=== PATIENT | male | born 1965 | race Caucasian/White ===

== ENCOUNTER → 2019-03-21 07:49 | Outpatient (BNVA) | payer MEDICARE, SELFPAY | PROVIDERS: Family Provider Family Medicine; PCP Family Medicine; Visit Provider Nurse Practitioner | DX: M54.5 Low back pain (principal); Z79.891 Long term (current) use of opiate analgesic | CPT/HCPCS: 99213; 99214 ==

== ENCOUNTER → 2019-05-23 08:51 | Outpatient (BNVA) | payer MEDICARE, SELFPAY | PROVIDERS: Family Provider Family Medicine; PCP Family Medicine; Visit Provider Nurse Practitioner | DX: M47.16 Other spondylosis with myelopathy, lumbar region (principal); Z79.891 Long term (current) use of opiate analgesic | CPT/HCPCS: 99214 ==

== ENCOUNTER → 2019-08-29 10:00 | Outpatient (BNVA) | payer MEDICARE, SELFPAY | PROVIDERS: Family Provider Family Medicine; PCP Family Medicine; Visit Provider Family Medicine | DX: I10 Essential (primary) hypertension (principal); E78.5 Hyperlipidemia, unspecified; R73.03 Prediabetes | CPT/HCPCS: 80053; 80061; 83036 ==

== ENCOUNTER → 2019-09-17 13:37 | Outpatient (BNVA) | payer MEDICARE, SELFPAY | PROVIDERS: Family Provider Family Medicine; PCP Family Medicine; Visit Provider Nurse Practitioner | DX: G89.29 Other chronic pain (principal); M54.2 Cervicalgia; M54.42 Lumbago with sciatica, left side; M54.41 Lumbago with sciatica, right side; M47.16 Other spondylosis with myelopathy, lumbar region; M54.6 Pain in thoracic spine; F17.298 Nicotine dependence, other tobacco product, with other nicotine-induced disorders; Z79.891 Long term (current) use of opiate analgesic | CPT/HCPCS: 87491; 87591; 99213; 99214 ==

== ENCOUNTER → 2019-10-03 10:13 | Outpatient (BNVA) | payer MEDICARE, SELFPAY | PROVIDERS: Family Provider Family Medicine; PCP Family Medicine; Referring Provider Family Medicine; Visit Provider Family Medicine | DX: A64 Unspecified sexually transmitted disease (principal) | CPT/HCPCS: 87491; 87591; 87661 ==

== ENCOUNTER → 2019-11-12 08:06 | Outpatient (BNVA) | payer MEDICARE, SELFPAY | PROVIDERS: Family Provider Family Medicine; PCP Family Medicine; Visit Provider Anesthesiology | DX: G89.29 Other chronic pain (principal); M54.42 Lumbago with sciatica, left side; M54.41 Lumbago with sciatica, right side; M51.36 Other intervertebral disc degeneration, lumbar region; M47.16 Other spondylosis with myelopathy, lumbar region; M54.2 Cervicalgia; Z79.891 Long term (current) use of opiate analgesic | CPT/HCPCS: 99214 ==

== ENCOUNTER → 2020-01-14 07:51 | Outpatient (BNVA) | payer MEDICARE, SELFPAY | PROVIDERS: Family Provider Family Medicine; PCP Family Medicine; Visit Provider Anesthesiology | DX: G89.29 Other chronic pain (principal); M51.36 Other intervertebral disc degeneration, lumbar region; M47.16 Other spondylosis with myelopathy, lumbar region; M54.2 Cervicalgia; Z79.891 Long term (current) use of opiate analgesic | CPT/HCPCS: 99214 ==

== ENCOUNTER → 2020-03-17 09:05 | Outpatient (BNVA) | payer MEDICARE, SELFPAY | PROVIDERS: Family Provider Family Medicine; PCP Family Medicine; Visit Provider Nurse Practitioner | DX: G89.29 Other chronic pain (principal); M51.36 Other intervertebral disc degeneration, lumbar region; M47.16 Other spondylosis with myelopathy, lumbar region; M54.2 Cervicalgia; M19.90 Unspecified osteoarthritis, unspecified site; M54.5 Low back pain; F17.298 Nicotine dependence, other tobacco product, with other nicotine-induced disorders; Z71.6 Tobacco abuse counseling; Z79.891 Long term (current) use of opiate analgesic | CPT/HCPCS: 99213 ==

== ENCOUNTER → 2020-04-07 09:02 | Outpatient (BNVA) | payer MEDICARE, SELFPAY | PROVIDERS: Family Provider Family Medicine; PCP Family Medicine; Visit Provider Family Medicine | DX: I10 Essential (primary) hypertension (principal); N52.8 Other male erectile dysfunction; E78.5 Hyperlipidemia, unspecified; F17.298 Nicotine dependence, other tobacco product, with other nicotine-induced disorders | CPT/HCPCS: 80053; 80061 ==

== ENCOUNTER → 2020-05-14 08:54 | Outpatient (BNVA) | payer MEDICARE, SELFPAY | PROVIDERS: Family Provider Family Medicine; PCP Family Medicine; Visit Provider Nurse Practitioner | DX: G89.29 Other chronic pain (principal); M51.36 Other intervertebral disc degeneration, lumbar region; M47.16 Other spondylosis with myelopathy, lumbar region; M19.90 Unspecified osteoarthritis, unspecified site; M54.2 Cervicalgia; F17.298 Nicotine dependence, other tobacco product, with other nicotine-induced disorders; Z79.891 Long term (current) use of opiate analgesic; Z71.6 Tobacco abuse counseling | CPT/HCPCS: 99213; 99214 ==

== ENCOUNTER → 2020-07-09 07:55 | Outpatient (BNVA) | payer MEDICARE, SELFPAY | PROVIDERS: Family Provider Family Medicine; PCP Family Medicine; Visit Provider Anesthesiology | DX: G89.29 Other chronic pain (principal); M47.16 Other spondylosis with myelopathy, lumbar region; M51.36 Other intervertebral disc degeneration, lumbar region; M54.2 Cervicalgia; F17.298 Nicotine dependence, other tobacco product, with other nicotine-induced disorders; Z79.891 Long term (current) use of opiate analgesic | CPT/HCPCS: 99214 ==

== ENCOUNTER → 2020-09-03 07:52 | Outpatient (BNVA) | payer MEDICARE, SELFPAY | PROVIDERS: Family Provider Family Medicine; PCP Family Medicine; Visit Provider Anesthesiology | DX: G89.29 Other chronic pain (principal); M47.16 Other spondylosis with myelopathy, lumbar region; M51.36 Other intervertebral disc degeneration, lumbar region; M54.2 Cervicalgia; Z79.891 Long term (current) use of opiate analgesic; Z87.891 Personal history of nicotine dependence | CPT/HCPCS: 99214 ==

== ENCOUNTER → 2020-11-05 07:57 | Outpatient (BNVA) | payer MEDICARE, SELFPAY | PROVIDERS: Family Provider Family Medicine; PCP Family Medicine; Visit Provider Anesthesiology | DX: G89.29 Other chronic pain (principal); M51.36 Other intervertebral disc degeneration, lumbar region; M47.16 Other spondylosis with myelopathy, lumbar region; M54.2 Cervicalgia; F17.298 Nicotine dependence, other tobacco product, with other nicotine-induced disorders; Z79.891 Long term (current) use of opiate analgesic | CPT/HCPCS: 99214 ==

== ENCOUNTER 2020-12-24 11:43 | Emergency (ER) | payer MEDICARE, SELFPAY ==
[2020-12-24 11:59] VITALS: BP 107/72; PULSE 74; RESP 16; TEMP 36.9; O2SAT 97; BMI 34.7
[2020-12-24 12:03] VITALS: RESP 15
--- NOTE | 2020-12-24 12:04 | W.ED.LOWEXIN ---
Documented by User: ROSE Burroughs 12/24/20 15:45 HPI - Extremity Injury (Lower) General: Chief Complaint: Extremity Injury, Lower Stated Complaint: Pain in R Knee Time Seen by Provider: 12/24/20 12:04 Source: patient Mode of arrival: ambulatory Limitations: no limitations History of Present Illness: HPI Narrative: Patient is a 55-year-old male who presents to ED today for evaluation of a right knee injury. Patient tells me a few days ago he was going down a flight of stairs when he fell and states his left leg extended and his right leg got caught underneath him. Patient was subsequently seen by his primary care provider and told he could potentially have a quadriceps tendon rupture and recommended he come to the ED for evaluation/imaging/surgical consult. Patient tells me he is unable to extend his knee. He is ambulatory on the leg but with discomfort. MD complaint: knee injury Onset (ago): day(s) Place: home Relieving factors: immobilization Exacerbating factors: weight bearing and movement Context: fall Other symptoms: none Review of Systems Const: Denies: fever(s), chills, body aches, fatigue or malaise Card: Denies: chest pain Resp: Denies: dyspnea Musc: Reports: extremity pain (R leg); Denies: joint swelling Skin/Breast: Denies: rash Neuro: Denies: numbness in extremities or sensory changes PFS ED PFSH: Medical History (Updated 12/24/20 @ 14:58 by ROSE Burroughs) Chronic thoracic spine pain DDD (degenerative disc disease), lumbar Dyslipidemia Encounter for long-term (current) use of NSAIDs Essential hypertension Long-term current use of opiate analgesic > than 50% of 25 min visit spent counselling on weight loss and exercise. Lumbar spondylosis with myelopathy Continue current meds RX written for 340B Plan Neck pain Osteoarthritis, chronic Pain management contract signed Surgical History Hx of appendectomy 1977 Hx of bilateral hip replacements [facility] [place] Ortho Dr. Abrams. Left 2013 Right 2018 Hx of foot surgery [address] Melvin Campo [facility] Hx of fracture of arm Around 1977 surgery done [facility] Hx of tonsillectomy 1975 Status post left foot surgery LEFT FOOT RECONSTRUCTION - 2000 Family History Father , AGE 49 Diabetes Heart disease CAD (coronary artery disease) Grandfather Diabetes PATERNAL Social History Smoking and tobacco status: never smoked Quit status (tobacco): has quit using tobacco Year quit tobacco: 2011 Former quit date comment: usin nicorette gum AND VAPES Second hand smoke exposure: No Alcohol intake: never Desire information about alcohol rehabilitation?: No Household members: spouse Marital status: History of recent travel: No Physical Exam Const: COMMON NORMALS: no acute distress, patient oriented x3, no limitations and alert GENERAL APPEARANCE: cooperative NUTRITIONAL APPEARANCE: obese ORIENTATION/CONSCIOUSNESS: Yes awake, Yes oriented to person, Yes oriented to place and Yes oriented to time Extremity: GENERAL: Yes normal exam except as noted RIGHT LOWER EXTREMITY: Yes knee joint OTHER: patient has a palpable defect above his patella; he cannot extend knee joint and cannot perform straight leg raise; R leg is significantly larger than L that he states is chronic secondary to a L foot deformity and subsequent atrophy of the extremity; no calf pain; NV intact; sensory intact Neuro: COMMON NORMALS: patient oriented x3 and no sensory deficits noted SENSORIUM/ORIENTATION: Yes alert, Yes oriented to person, Yes oriented to place and Yes oriented to time Skin: COMMON NORMALS: no rashes or lesions noted GENERAL SKIN EXAM: no rashes or lesions noted TRAUMA: no lacerations or abrasions Course Consultations: Consultation #1: Dr. Abrams-recommends MRI for surgical planning, knee immobilizer, and will see patient in office on Monday Vital Signs: Vital signs: Vital Signs Temperature 98.5 F 12/24/20 11:59 Pulse Rate 74 12/24/20 11:59 Respiratory Rate 15 12/24/20 15:07 Blood Pressure 107/72 12/24/20 11:59 Pulse Oximetry 97 12/24/20 11:59 MDM - Extremity Injury (Lower) MDM Narrative: Medical decision making narrative: Spoke with Dr. Abrams who recommended MRI imaging. She will see patient on Monday for surgical planning. PCR COVID obtained. Patient will be placed in a knee immobilizer and given crutches. He has pain medications he can take at home. Imaging Data^: XR R knee: Radiologist's impression: [place] [id number] XRay Report Signed Patient: Ag Nelson Unit #: [id number] : 1965 Age/Sex: 55 / M ADM Date: 12/24/20 Loc: ER Room/Bed: Attending Dr: Ordering Provider/Ordering MD: Noy Luis Date of Service: 12/24/20 Procedure(s): XR knee RT 3V* [id number] Accession Number(s): [id number] Report Number: [id number] WS: [id number] XR knee RT 3V* [id number] REASON FOR EXAM: knee pain; poss quad tendon rupture FINDINGS: The medial and lateral knee joint spaces are relatively well-preserved. The patellofemoral joint space appears preserved. Small patellar marginal osteophytes. Enthesophyte at the insertion of the quadriceps tendon on the patella. There is a soft tissue mass anterior to the distal most femur and superior to the patella. Faint calcifications ossifications same location. Patella appears somewhat displaced inferiorly. XR/XR knee RT 3V* [id number] IMPRESSION: Soft tissue and patellar location are compatible with quadriceps tendon/muscle injury. Possibly avulsion of the quadriceps tendon from the patella with small bony fragment and retraction. Dictated By: Nakul Holliday Jr, MD Signed By: Naklu Holliday Jr, MD Signed Date/Time: 12/24/20 1241 DD/ 1234 MRI R knee: Radiologist's impression: [place] [address] Magnetic Resonance Report Signed Patient: Ag Nelson Unit #: [id number] : 1965 Age/Sex: 55 / M ADM Date: 12/24/20 Loc: ER Room/Bed: Attending Dr: Ordering Provider/Ordering MD: Noy Luis Date of Service: 12/24/20 Procedure(s): MR knee RT wo con* [id number] Accession Number(s): [id number] Report Number: [id number] WS: [id number] MRI RIGHT KNEE NONCONTRAST TECHNIQUE: Axial PD, coronal PD fat sat, coronal PD, sagittal PD, and sagittal PD fat-sat images obtained. CLINICAL INFORMATION: quadricep tendon rupture; per Dr. Abrams-surgical planning COMPARISON: None. FINDINGS: Diffuse soft tissue edema. Moderate joint effusion. High-grade complete/near-complete tendon tear involving the distal quadriceps tendon with retraction measuring approximately 7 mm. Suggestion of a small amount of possible residual bridging tendon eccentric along the lateral margin. Patella tendon is intact. Hypertrophic patella. No visualized patella avulsion. Patella enthesophyte with hypertrophic changes. Normal ACL and PCL. Moderate tricompartmental arthritis. No acute appearing meniscal tears. Chronic thinning of the medial and lateral meniscus. Tiny lateral parameniscal cyst. No edema within the femoral condyles and tibial plateau. Moderate chondromalacia patella. No subchondral edema. Medial and lateral collateral ligaments appear grossly intact. MR/MR knee RT wo con* [id number] IMPRESSION: 1. High-grade complete/near-complete tear of the distal quadriceps tendon with approximately 7 mm of retraction. 2. No evidence patella avulsion. Patella enthesophyte with hypertrophic changes. 3. Diffuse edema about the knee involving the suprapatellar fat with moderate joint effusion. 4. Normal ACL and PCL. 5. No acute appearing meniscal tears. 6. Moderate tricompartmental arthritis. Outbridge grading: Dictated By: Matthieu Sow MD Signed By: Matthieu Sow MD Signed Date/Time: 12/24/201521 DD/ 13 Discharge Plan Discharge Patient Disposition: Home Clinical Impression: Traumatic rupture of right quadriceps tendon Qualifiers: Encounter type: initial encounter Qualified Code(s): S76.111A - Strain of right quadriceps muscle, fascia and tendon, initial encounter Condition: Stable Prescriptions: No Action aspirin 81 mg tablet,delayed release (DR/EC) 81 mg PO EVERY OTHER DAY RF: 0 hydrocodone-acetaminophen 10-325 mg tablet 1 tab PO Q4H MDD 6 30 Days Qty: 180 RF: 0 Vitamin C 1,000 mg Tablet 1,000 mg PO EVERY OTHER DAY RF: 0 Vitamin B-12 1 tab PO EVERY OTHER DAY RF: 0 Vitamin B-6 1 tab PO EVERY OTHER DAY RF: 0 Vitamin D3 1 cap PO EVERY OTHER DAY RF: 0 zinc 1 cap PO EVERY OTHER DAY RF: 0 sildenafil 100 mg tablet See Rx Instructions .ROUTE .COMPLEX PRN (Reason: sexual activity) RF: 0 lisinopril-hydrochlorothiazide 10-12.5 mg tablet 1 tab PO QAM RF: 0 pregabalin 75 mg capsule 75 mg PO 5XD RF: 0 Discharge Orders: Discharge ED (Routine); Ordered 12/24/20 Ordered By: Noy Luis Referrals: Elda Le MD [Primary Care Provider] - Patient Instructions: Knee Immobilizer (ED), Quadriceps Tendon Rupture Activity Restrictions/Additional Instructions: As we discussed you have an appointment with Dr. Abrams scheduled for Monday for evaluation and possible planning for surgery. She will go over results of your MRI during that visit. No weight bearing on the extremity until this appointment. Coding Level of Care Code ED Publication Editor for Chg Fwd Exam Expanded Problem Focused Documented by User: Deric Parks DO 12/24/20 17:23 HPI - Extremity Injury (Lower) General: Chief Complaint: Extremity Injury, Lower Stated Complaint: Pain in R Knee Time Seen by Provider: 12/24/20 12:04 PFS ED PFSH: Medical History (Updated 12/24/20 @ 14:58 by ROSE Burroughs) Chronic thoracic spine pain DDD (degenerative disc disease), lumbar Dyslipidemia Encounter for long-term (current) use of NSAIDs Essential hypertension Long-term current use of opiate analgesic > than 50% of 25 min visit spent counselling on weight loss and exercise. Lumbar spondylosis with myelopathy Continue current meds RX written for 340B Plan Neck pain Osteoarthritis, chronic Pain management contract signed Surgical History Hx of appendectomy 1977 Hx of bilateral hip replacements [facility] Ortho Dr. Abrams. Left 2013 Right 2018 Hx of foot surgery [address] Melvin [facility]o [facility] Hx of fracture of arm Around 1977 surgery done [place] [facility] Hx of tonsillectomy 1975 Status post left foot surgery LEFT FOOT RECONSTRUCTION - 2000 Family History Father , AGE 49 Diabetes Heart disease CAD (coronary artery disease) Grandfather Diabetes PATERNAL Social History Smoking and tobacco status: never smoked Quit status (tobacco): has quit using tobacco Year quit tobacco: 2011 Former quit date comment: usin nicorette gum AND VAPES Second hand smoke exposure: No Alcohol intake: never Desire information about alcohol rehabilitation?: No Household members: spouse Marital status: History of recent travel: No Course Vital Signs: Vital signs: Vital Signs Temperature 98.5 F 12/24/20 11:59 Pulse Rate 74 12/24/20 11:59 Respiratory Rate 15 12/24/20 15:07 Blood Pressure 107/72 12/24/20 11:59 Pulse Oximetry 97 12/24/20 11:59 MDM - Extremity Injury (Lower) MDM Narrative: Medical decision making narrative: Chart reviewed agree with assessment and plan Discharge Plan Discharge Patient Disposition: Home Clinical Impression: Traumatic rupture of right quadriceps tendon Qualifiers: Encounter type: initial encounter Qualified Code(s): S76.111A - Strain of right quadriceps muscle, fascia and tendon, initial encounter Condition: Stable Prescriptions: No Action aspirin 81 mg tablet,delayed release (DR/EC) 81 mg PO EVERY OTHER DAY RF: 0 hydrocodone-acetaminophen 10-325 mg tablet 1 tab PO Q4H MDD 6 30 Days Qty: 180 RF: 0 Vitamin C 1,000 mg Tablet 1,000 mg PO EVERY OTHER DAY RF: 0 Vitamin B-12 1 tab PO EVERY OTHER DAY RF: 0 Vitamin B-6 1 tab PO EVERY OTHER DAY RF: 0 Vitamin D3 1 cap PO EVERY OTHER DAY RF: 0 zinc 1 cap PO EVERY OTHER DAY RF: 0 sildenafil 100 mg tablet See Rx Instructions .ROUTE .COMPLEX PRN (Reason: sexual activity) RF: 0 lisinopril-hydrochlorothiazide 10-12.5 mg tablet 1 tab PO QAM RF: 0 pregabalin 75 mg capsule 75 mg PO 5XD RF: 0 Discharge Orders: Discharge ED (Routine); Ordered 12/24/20 Ordered By: Noy Luis Referrals: Elda Le MD [Primary Care Provider] - Patient Instructions: Knee Immobilizer (ED), Quadriceps Tendon Rupture Activity Restrictions/Additional Instructions: As we discussed you have an appointment with Dr. Abrams scheduled for Monday for evaluation and possible planning for surgery. She will go over results of your MRI during that visit. No weight bearing on the extremity until this appointment. Coding Level of Care Code ED Publication Editor for Toni Fwd Exam Expanded Problem Focused
--- NOTE | 2020-12-24 12:14 | XR_ITS ---
WS: [id number] XR knee RT 3V* [id number] REASON FOR EXAM: knee pain; poss quad tendon rupture FINDINGS: The medial and lateral knee joint spaces are relatively well-preserved. The patellofemoral joint space appears preserved. Small patellar marginal osteophytes. Enthesophyte a t the insertion of the quadriceps tendon on the patella. There is a soft tissue mass anterior to the distal most femur and superior to the patella. Faint calc ifications ossifications same location. Patella appears somewhat displaced inferiorly. XR/XR knee RT 3V* [id number] IMPRESSION: Soft tissue and patellar location are compatible with quadriceps tendon/muscle injury. Possibly avulsion of the quadriceps tendon from the patella with small bony fra gment and retraction.
--- NOTE | 2020-12-24 13:04 | MR_ITS ---
WS: [id number] MRI RIGHT KNEE NONCONTRAST TECHNIQUE: Axial PD, coronal PD fat sat, coronal PD, sagittal PD, and sagittal PD fat-sat images obta ined. CLINICAL INFORMATION: quadricep tendon rupture; per Dr. Abrams-surgical planning COMPARISON: None. FINDINGS: Diffuse soft tissue edema. Moderate joint effusion. High-grade complete/near-complete tendon tear inv olving the distal quadriceps tendon with retraction measuring approximately 7 mm. Suggestion of a sma ll amount of possible residual bridging tendon eccentric along the lateral margin. Patella tendon is intact. Hypertrophic patella. No visualized patella avulsion. Patella enthesophyte with hypertrophic changes. Normal ACL and PCL. Moderate tricompartmental arthritis. No acute appearing meniscal tears. Chronic thinning of the medial and lateral meniscus. Tiny lateral parameniscal cyst. No edema within the femo ral condyles and tibial plateau. Moderate chondromalacia patella. No subchondral edema. Medial and la teral collateral ligaments appear grossly intact. MR/MR knee RT wo con* [id number] IMPRESSION: 1. High-grade complete/near-complete tear of the distal quadriceps tendon with approximately 7 mm of retraction. 2. No evidence patella avulsion. Patella enthesophyte with hypertrophic change s. 3. Diffuse edema about the knee involving the suprapatellar fat with moderate joint effusion. 4. Normal ACL and PCL. 5. No acute appearing meniscal tears. 6. Moderate tricompartmental arthritis. Outbridge grading:
--- NOTE | 2020-12-24 13:32 | DCPLANNER ---
mobile product manager was asked to schedule a follow up appointment for patient with ortho. mobile product manager called the ortho clinic, spoke with Erin, gave clinic patients information. mobile product manager was told that patients information would be printed and reviewed. Clinic will call patient with appointment information.
[2020-12-24 14:03] VITALS: RESP 15
[2020-12-24 15:07] VITALS: RESP 15
[2020-12-25 16:40] LABS: Coronavirus Test Green County Not Detected
--- NOTE | 2021-01-29 12:17 | DCPLANNER ---
Patient had a follow up appointment scheduled for 12.28.[address] Abrams at [facility] - patient did attend appointment.
== END 2020-12-24 15:07 | disposition home or self-care (01) ==
PROVIDERS: Emergency Provider Physician Assistant; PCP Family Medicine
DX: S76.111A Strain of right quadriceps muscle, fascia and tendon, initial encounter (principal); Z79.82 Long term (current) use of aspirin; E78.5 Hyperlipidemia, unspecified; I10 Essential (primary) hypertension; Z87.891 Personal history of nicotine dependence; W10.8XXA Fall (on) (from) other stairs and steps, initial encounter; Z20.822 Contact with and (suspected) exposure to COVID-19
CPT/HCPCS: 29530; 73562; 73721; 87635; 99283; E0114

== ENCOUNTER 2020-12-28 16:30 | Outpatient (CLI) | payer MEDICARE, SELFPAY | END 2020-12-28 16:31 | disposition home or self-care (01) | LOC: SPT 16:30 | PROVIDERS: PCP Family Medicine; Visit Provider Specialist | DX: Z46.89 Encounter for fitting and adjustment of other specified devices (principal); S76.111D Strain of right quadriceps muscle, fascia and tendon, subsequent encounter; X58.XXXD Exposure to other specified factors, subsequent encounter | CPT/HCPCS: 97760; L1832 ==

== ENCOUNTER 2020-12-29 14:01 | Day surgery (SDC) | payer MEDICARE, SELFPAY ==
[2020-12-28 16:11] VITALS: BMI 33.9
[2020-12-29] VITALS (15 sets, daily range): BP systolic 129–181; BP diastolic 74–122; PULSE 60–79; RESP 15–20; TEMP 36.6–37.3; O2SAT 92–100
[2020-12-29] MEDS: sodium chloride 0.9% 1,000 ML 30 ML IV (14:41)
--- NOTE | 2020-12-29 15:37 | P.HPUD_ITS ---
Surgery/Procedure H&P Update DATE OF PROCEDURE: December 29, 2020 DATE H&P PERFORMED: 12/28/20 H&P UPDATE INFORMATION: I have reviewed H&P completed within last 30 days, No changes to prior documentation and H&P is in [facility] EMR on date indicated PREOP DIAGNOSIS: Traumatic right quadriceps tendon rupture PLANNED PROCEDURE: Operation Date: 12/29/20 16:15 Proposed Procedures p Tendon Repair Quadriceps(Right) - Patricia Abrams MD Related Problem List Diagnoses (1) Traumatic rupture of right quadriceps tendon: Qualifiers: Encounter type: initial encounter Qualified Code(s): S76.111A - Strain of right quadriceps muscle, fascia and tendon, initial encounter
--- NOTE | 2020-12-29 15:39 | P.ANESASSM_ITS ---
Pre-Anesthetic Assessment Pre-Anesthetic Assessment: Height/Weight: Height 1.83 m Weight 113.398 kg Temp Pulse Resp BP Pulse Ox 98 F 70 15 129/74 97 12/29/20 14:25 12/29/20 14:25 12/29/20 14:25 12/29/20 14:25 12/29/20 14:25 Preop Diagnosis: Traumatic right quadriceps tendon rupture Proposed Procedure: Operation Date: 12/29/20 16:15 Proposed Procedures p Tendon Repair Quadriceps(Right) - Patricia Abrams MD Was Beta Farhan taken within 24 hours: N/A Was Clonidine taken within 24 hours: N/A Last intake: Intake Last Liquid Date 12/29/20 Last Liquid Time 10:00 Last Solid Date 12/28/20 Last Solid Time 00:00 Social: Social History: No alcohol and No tobacco Exam: Pre-Anes Outpt Exam: alert, oriented x 3 and clear to auscultation bila terally Airway: Submandibular: WNL Cervical ROM: WNL MP: 3 Dentition: Full History/ROS: No significant complaints Pulmonary: Pulmonary: None reported CV/HEM: CV/HEM: None reported : : None reported Hepatic: Hepatic: None reported GI: GI: None reported Metabolic: Metabolic: Morbid obesity Musc/skel: Musc/skel: OA/DJD Neuropsych: Neuropsych: None reported Anesthetic Plan: ASA status: 3 Anesthesia: General Risk of > 500 ml blood loss (7ml/kg in children): Yes, adequate IV access and fluids planned Meds/Allergies Current Medications: Current Medications Generic Name Dose Route Start Last Admin Trade Name Freq PRN Reason Stop Dose Admin Sodium Chloride 1,000 mls @ 30 ml s/hr 12/29/20 14:15 12/29/20 14:41 Sodium Chloride 0.9% IV 12/30/20 14:14 30 mls/hr .Q24H YOCASTA Administration PFSH Anesthesia PFSH: Medical History Chronic thoracic spine pain DDD (degenerative disc disease), lumbar Dyslipidemia Encounter for long-term (current) use of NSAIDs Essential hypertension Long-term current use of opiate analgesic > than 50% of 25 min visit spent counselling on weight loss and exercise. Lumbar spondylosis with myelopathy Continue current meds RX written for 340B Plan Neck pain Osteoarthritis, chronic Pain management contract signed Surgical History Hx of appendectomy 1977 Hx of bilateral hip replacements [facility] [place] Ortho Dr. Abrams Right 2018. Left 2013 elsewhere Hx of foot surgery [address] Melvin Campo [facility] Hx of fracture of arm Around 1977 surgery done [place] Hx of tonsillectomy 1975 Status post left foot surgery LEFT FOOT RECONSTRUCTION - 2000 Family History Father , AGE 49 Diabetes Heart disease CAD (coronary artery disease) Grandfather Diabetes PATERNAL Social History Quit status (tobacco): has quit using tobacco Year quit tobacco: 2011 Former quit date comment: usin nicorette gum AND VAPES Second hand smoke exposure: No Alcohol intake: never Desire information about alcohol rehabilitation?: No Household members: spouse Marital status: History of recent travel: No Data Anesthesia Cardiac Studies: No Data to Display
[2020-12-29 15:53] LABS: Basophils # 0.1 10^3/uL (0.0-0.1); Basophils % 1.1 %; Eosinophils # 0.4 10^3/uL (0.0-0.8); Eosinophils % 3.9 %; Hematocrit 44.4 % (42.0-52.0); Hemoglobin 15.8 g/dL (11.7-16.6); Lymphocytes # 2.5 10^3/uL (0.8-4.8); Lymphocytes % 22.6 %; Mean Corpuscular HGB Conc 35.6 g/dL (30.0-36.0); Mean Corpuscular Hemoglobin 33.2 pg (28.0-34.0); Mean Corpuscular Volume 93.3 fl (80-94); Mean Platelet Volume 8.9 fL (7.4-10.4); Monocytes # 0.8 10^3/uL (0.2-0.9); Monocytes % 7.4 %; Neutrophils # 7.16 10^3/uL (1.8-7.7); Neutrophils % 64.5 %; Nucleated Red Blood Cells % 0 %; Platelet Count 194 10^3/cmm (130-400); Red Blood Count 4.76 10^6/uL (4.1-5.3); Red Cell Distribution Width 12.9 % (12.1-15.1); White Blood Count 11.1 10^3/uL (4.0-10.0)
[2020-12-29] MEDS: acetaminophen 1,000 MG/100 ML PIGGYBACK 400 MG IV (16:05)
[2020-12-29] MEDS: CELEcoxib 100 mg Capsule 400 MG PO (16:06)
[2020-12-29 16:22] LABS: Add Urine Microscopic? YES; Bilirubin Urine Neg (Negative); Blood Urine Neg (Negative); Glucose Urine UA Norm (Normal); Ketones Urine Negative (Negative); Leukocyte Esterase Urine Trace (Negative); Nitrate Urine Negative (Negative); Protein Urine Neg (Negative); Specific Gravity, Urine 1.015 (1.005-1.030); Urine Appearance Clear (CLEAR); Urine Color Straw (Yellow); Urobilinogen Urine Norm (Negative); pH Urine 5 (5-7)
[2020-12-29 16:41] LABS: Bacteria Urine TRACE /hpf; Mucus Urine 2+ /hpf; Squamous Epithelial Cell Urine 0-4 /hpf (0-5); WBC Urine 0-4 /hpf (0-5)
[2020-12-29 16:42] LABS: Add Urine Culture? No
[2020-12-29 16:44] LABS: Alanine Aminotransferase 21 U/L (0-41); Albumin Level 3.9 g/dL (3.5-5.2); Alkaline Phosphatase 71 IU/L (40-130); Blood Urea Nitrogen 14 mg/dL (6-20); Calcium 8.4 mg/dL (8.5-10.5); Carbon Dioxide 23 mmol/L (22-29); Chloride 104 mmol/L (98-107); Globulin 2.9 g/dL (1.3-4.6); Glomerular Filtration Rate 139.9 mL/min (90-130); Glucose 85 mg/dL (65-115); Osmolality Calculated 284 mOsm/kg (285-295); Sodium 137 mmol/L (136-145); Total Bilirubin 0.5 mg/dL (0.15-1.2); Total Protein 6.8 g/dL (6.6-8.7)
[2020-12-29 16:45] LABS: Anion Gap 13.9 (5-19); Aspartate Amino Transferase 27 U/L (0-40); Potassium 3.9 mmol/L (3.5-5.1)
--- NOTE | 2020-12-29 18:26 | P.OP_ITS ---
Operative Report Date of procedure: December 29, 2020 Pre-op Diagnosis: Traumatic right quadriceps tendon rupture Post-op diagnosis: same Post-op Findings: Complete rupture of quadriceps tendon with retraction. Also lateral and medial retinacular disruption. Procedure Done: Right knee quadriceps tendon repair at the insertion on patella Implants: 5.5 mm Biosteon Intraline [place] anchor X2 with 2 X #2 force fibers each Specimens removed/disposition: None Pathology: none sent Surgeon: Patricia Abrams Draw Bench Operator: [facility] operating room technicians Anesthesia: General (LMA, ASA 3) Estimated blood loss (mL): 10 Tourniquet time (min): 61 Tourniquet time: At 250 mmHg IV fluids (mL): 600 Urine output (mL): 0 Urine output: No Barrera Complications: None Findings: Complete disruption of the distal quadriceps tendon at the insertion onto the patella with no significant patellar fragments. Tearing of the medial and lateral retinaculum transversely as well. Condition: stable Disposition: PACU (Then to same-day surgery for discharge to home.) Brief History: This 55-year-old gentleman presented to my office for evaluation of right knee pain. On December 19, the patient was going down a set of stairs when he had a loaded hyperflexion injury. He was seen in the emergency department on December 24 and advised that he had a defect consistent with a complete distal quadriceps tendon disruption. He had been unable to actively straighten his knee since the time of his accident. MRI confirmed complete patellar tendon disruption. After discussion, we elected to proceed with surgical repair, and the patient was in agreement. Preoperatively, consents were signed and questions were answered. Procedure: The patient was brought to the operating theater, and after undergoing adequate general anesthesia per LMA, ASA 3. A tourniquet was placed high on the right lower extremity, and subsequently, the right leg was then draped free with the prepping accomplished with DuraPrep. Following prepping and draping, the leg was exsanguinated, and the tourniquet was elevated to 250 mmHg for total tourniquet time of 61 minutes. Prior to elevation of the tourniquet, and following exposure of the site of surgery, a surgical pause was performed. At the time of the surgical pause we confirmed the site and side of surgery. Additionally, we confirmed the appropriate and timely administration of preoperative antibiotics, Ancef 2 g. The availability of equipment was confirmed, and the patient's identity was verbalized as well. Following the surgical pause, an incision was made centering over the patella continuing proximally and distally as necessary to allow access to the patella and distal quadriceps tendon tear. Dissection continued through skin and soft tissues using a scalpel. Hemostasis was obtained using electrocautery. The quadriceps tendon tear distally was visualized. There was a complete tear with involvement of the lateral retinaculum as well as the medial. The ends of the quadriceps tendon were freshened with a scalpel. Fibrous tissue was removed from the area as well. The proximal patella was evaluated and fibrous tissue was removed from this. This was then addressed with the Biosteon IntraLine 5.5 mm tap. Following this, 2 X Biosteon IntraLine 5.5 mm suture anchor with 2 X #2 Force Fiber's. These were placed into the patella. We then wove a modified Hartman type stitch up into the quadriceps tendon. 2 of these were placed 1 medial and 1 lateral. One was initiated from each anchor. After this had been accomplished, the second Force Fiber from each anchor was again woven through the tendon and tied more superficially. The knee was able to be flexed to 30 degrees without pulling apart the repair. Further repair was accomplished with 0 Ethibond in the medial and lateral retinaculum. Vicryl was then used to further smooth the suture line. Irrigation was utilized throughout the surgical procedure. Being satisfied with the tendon repair, closure was to be accomplished. Attention was then directed to closure. Closure was accomplished with 2-0 Monocryl in the subcutaneous tissues, and the skin was closed with skin raúl. A sterile dressing was then placed consisting of raúl, Prineo, OpSite, and an Anthony wrap. The patient was then placed in the [place] brace which he had been f itted with in the office. Range of motion was limited from 0 to 30 degrees. The patient was returned the Recovery Room in a satisfactory condition. Plan is that the patient will be discharged to home. Associated Problem List Diagnoses (1) Traumatic rupture of right quadriceps tendon: Qualifiers: Encounter type: initial encounter Qualified Code(s): S76.111A - Strain of right quadriceps muscle, fascia and tendon, initial encounter
[2020-12-29] MEDS: HYDROmorphone 1 mg/mL INJ 1 mL IVP (18:38)
[2020-12-29] MEDS: HYDROmorphone 1 mg/mL INJ 1 mL 0.5 MG IVP (19:01)
--- NOTE | 2020-12-29 19:21 | SUR.PHASEI ---
0916 PT AWAKE ALERT TALKATIVE STATES PAIN IS BETTER, [employer] PROTECTION OFFICER WITH PT IN OPS PT VSS RT KNEE D/I FIRST ICE TO SITE. DISTAL FOOT PINK WARM STRONG REGULAR PULSE DON JULIAN KNEE BRACE SET AT 30 DEGREES , LEG ELEVATED ON PILLOW TO PT COMFORT. HANDOFF AT BEDSIDE.
[2020-12-29] MEDS: HYDROcodone-acetaminophen 10-325 mg Tablet 1 TAB PO (19:23)
== END 2020-12-29 19:50 | disposition home or self-care (01) ==
PROVIDERS: PCP Family Medicine; Visit Provider Specialist
PROC: (CPT 27385; principal; 2020-12-29 16:05)
DX: S76.111A Strain of right quadriceps muscle, fascia and tendon, initial encounter (principal); X58.XXXA Exposure to other specified factors, initial encounter; E66.01 Morbid (severe) obesity due to excess calories; Z68.33 Body mass index [BMI] 33.0-33.9, adult; E78.5 Hyperlipidemia, unspecified; I10 Essential (primary) hypertension; Z79.891 Long term (current) use of opiate analgesic; Z82.49 Family history of ischemic heart disease and other diseases of the circulatory system; Z83.3 Family history of diabetes mellitus; Z79.82 Long term (current) use of aspirin; F17.290 Nicotine dependence, other tobacco product, uncomplicated
CPT/HCPCS: 27385; 36415; 80053; 81001; 85025; C1713; J0690; J1100; J1170; J2405; J2704; J3010; J7030

== ENCOUNTER → 2021-01-08 08:53 | Outpatient (BNVA) | payer MEDICARE, SELFPAY | PROVIDERS: PCP Family Medicine; Visit Provider Anesthesiology | DX: G89.29 Other chronic pain (principal); M51.36 Other intervertebral disc degeneration, lumbar region; M47.16 Other spondylosis with myelopathy, lumbar region; M54.2 Cervicalgia; M25.561 Pain in right knee; F17.298 Nicotine dependence, other tobacco product, with other nicotine-induced disorders; Z79.891 Long term (current) use of opiate analgesic | CPT/HCPCS: 99214 ==

== ENCOUNTER → 2021-01-13 13:22 | Outpatient (BNVA) | payer MEDICARE, SELFPAY | PROVIDERS: PCP Family Medicine; Visit Provider Specialist | DX: Z48.89 Encounter for other specified surgical aftercare (principal); S76.111A Strain of right quadriceps muscle, fascia and tendon, initial encounter; X58.XXXA Exposure to other specified factors, initial encounter | CPT/HCPCS: 73560; 97760; L1812 ==

== ENCOUNTER 2021-01-13 16:14 | Outpatient (CLI) | payer MEDICARE, SELFPAY | END 2021-01-13 16:15 | disposition home or self-care (01) | LOC: SPT 16:15 | PROVIDERS: PCP Family Medicine; Visit Provider Specialist | DX: Z46.89 Encounter for fitting and adjustment of other specified devices (principal); S76.111A Strain of right quadriceps muscle, fascia and tendon, initial encounter; X58.XXXA Exposure to other specified factors, initial encounter | CPT/HCPCS: 97760; L1812 ==

== ENCOUNTER → 2021-03-10 09:19 | Outpatient (BNVA) | payer MEDICARE, SELFPAY | PROVIDERS: PCP Family Medicine; Visit Provider Anesthesiology | DX: G89.29 Other chronic pain (principal); M51.36 Other intervertebral disc degeneration, lumbar region; M47.16 Other spondylosis with myelopathy, lumbar region; M54.2 Cervicalgia; M25.561 Pain in right knee; F17.290 Nicotine dependence, other tobacco product, uncomplicated; Z79.891 Long term (current) use of opiate analgesic | CPT/HCPCS: 99214 ==

== ENCOUNTER → 2021-04-01 08:45 | Outpatient (BNVA) | payer MEDICARE, SELFPAY | PROVIDERS: Family Provider Family Medicine; PCP Family Medicine; Visit Provider Family Medicine | DX: E78.5 Hyperlipidemia, unspecified (principal); I10 Essential (primary) hypertension | CPT/HCPCS: 80053; 80061 ==

== ENCOUNTER → 2021-09-16 09:22 | Outpatient (BNVA) | payer MEDICARE, SELFPAY | PROVIDERS: Family Provider Family Medicine; PCP Family Medicine; Visit Provider Emergency Medicine | DX: Z20.2 Contact with and (suspected) exposure to infections with a predominantly sexual mode of transmission (principal) | CPT/HCPCS: 87491 ==

== ENCOUNTER → 2022-03-24 08:59 | Outpatient (BNVA) | payer MEDICARE, SELFPAY | PROVIDERS: Family Provider Family Medicine; PCP Family Medicine; Visit Provider Family Medicine | DX: M25.561 Pain in right knee (principal); M19.90 Unspecified osteoarthritis, unspecified site; M54.6 Pain in thoracic spine; G89.29 Other chronic pain; M47.16 Other spondylosis with myelopathy, lumbar region; M51.36 Other intervertebral disc degeneration, lumbar region; E78.5 Hyperlipidemia, unspecified; I10 Essential (primary) hypertension | CPT/HCPCS: 80053; 80061 ==

== ENCOUNTER → 2023-04-06 09:27 | Outpatient (BNVA) | payer MEDICARE, SELFPAY | PROVIDERS: Family Provider Family Medicine; PCP Family Medicine; Visit Provider Family Medicine | DX: M25.561 Pain in right knee (principal); M19.90 Unspecified osteoarthritis, unspecified site; M54.6 Pain in thoracic spine; G89.29 Other chronic pain; M47.16 Other spondylosis with myelopathy, lumbar region; M51.36 Other intervertebral disc degeneration, lumbar region; E78.5 Hyperlipidemia, unspecified; I10 Essential (primary) hypertension; Z79.891 Long term (current) use of opiate analgesic; F51.01 Primary insomnia; Z79.899 Other long term (current) drug therapy | CPT/HCPCS: 80053; 80061 ==

== ENCOUNTER → 2023-11-30 08:33 | Outpatient (BNVA) | payer MEDICARE, SELFPAY | PROVIDERS: Family Provider Family Medicine; PCP Family Medicine; Visit Provider Family Medicine | DX: I10 Essential (primary) hypertension (principal); E11.9 Type 2 diabetes mellitus without complications; E78.5 Hyperlipidemia, unspecified | CPT/HCPCS: 80053; 80061; 83036 ==

== ENCOUNTER → 2024-06-20 08:40 | Outpatient (BNVA) | payer MEDICARE, SELFPAY | PROVIDERS: Family Provider Family Medicine; PCP Family Medicine; Visit Provider Family Medicine | DX: I10 Essential (primary) hypertension (principal); N52.8 Other male erectile dysfunction; M47.16 Other spondylosis with myelopathy, lumbar region; M19.90 Unspecified osteoarthritis, unspecified site; M54.2 Cervicalgia; M54.6 Pain in thoracic spine; G89.29 Other chronic pain; E11.9 Type 2 diabetes mellitus without complications; Z68.34 Body mass index [BMI] 34.0-34.9, adult | CPT/HCPCS: 80053; 83036 ==